=== PATIENT | male | born 1965 | race Caucasian/White ===

== ENCOUNTER → 2020-04-12 15:08 | Outpatient (CLI) | payer OTHER, SELFPAY ==
--- NOTE | ~2020-04-12 | XR_ITS ---
EXAMINATION: XR chest 2V 04/12/2020 16:09 INDICATION: Dyspnea. PROCEDURE: 2 view chest COMPARISON: 06/05/2012 FINDINGS: The lungs are clear. The cardiomediastinal silhouette is within normal limits. There are no pleural effusions. There is no pneumothorax suspected. IMPRESSION: 1: NO ACUTE CARDIOPULMONARY DISEASE. Reviewed, dictated and finalized at location A.
== END ==
PROVIDERS: PCP Family Medicine; Visit Provider Family Medicine
DX: R06.00 Dyspnea, unspecified (principal)
CPT/HCPCS: 71046

== ENCOUNTER 2020-10-05 16:34 | Outpatient (CLI) | payer OTHER, SELFPAY | END 2020-10-05 16:35 | disposition home or self-care (01) | LOC: ANHCOVIDVC 16:34 | PROVIDERS: PCP Family Medicine | DX: Z23 Encounter for immunization (principal) | CPT/HCPCS: 0001A; 91300 ==

== ENCOUNTER 2020-10-26 16:26 | Outpatient (CLI) | payer OTHER, SELFPAY | END 2020-10-26 16:27 | disposition home or self-care (01) | LOC: ANHCOVIDVC 16:26 | PROVIDERS: PCP Family Medicine | DX: Z23 Encounter for immunization (principal) | CPT/HCPCS: 0002A; 91300 ==

== ENCOUNTER → 2021-02-26 16:31 | Outpatient (CLI) | payer OTHER, SELFPAY ==
--- NOTE | ~2021-02-26 | XR_ITS ---
EXAMINATION: XR chest 2V DATE: 02/26/2021 16:48 INDICATION: Cough. TECHNIQUE: Frontal and lateral views of the chest were obtained. COMPARISON: Chest 2 views 05/12/2020, CT abdomen and pelvis 02/09/2015 FINDINGS: The chest demonstrates clear lungs without pneumonia, pleural effusion, or pneumothorax. Th e heart size is normal. IMPRESSION: 1. No acute cardiopulmonary disease. Reviewed, dictated and finalized at location A.
== END ==
PROVIDERS: PCP Family Medicine; Visit Provider Nurse Practitioner Family
DX: R05 Cough (principal)
CPT/HCPCS: 71046

== ENCOUNTER → 2022-12-13 12:41 | Outpatient (CLI) | payer OTHER, SELFPAY ==
--- NOTE | ~2022-12-13 | XR_ITS ---
XR abdomen/kub 1V 12/13/2022 13:44 INDICATION: Microscopic hematuria TECHNIQUE: KUB COMPARISON: None FINDINGS: Bowel gas pattern is normal. There is no evidence of free air, mass, organomegaly, ascites or obstruction. No abnormal calculi are seen. The bones appear intact. IMPRESSION: 1: No acute abdominal abnormality identified. Reviewed, dictated and finalized at location B.
--- NOTE | ~2022-12-13 | CT_ITS ---
CT of the Abdomen and Pelvis: Indication: Microscopic hematuria Technique: 2.5 mm axial scans were obtained through the abdomen and pelvis prior to and following in travenous administration of 130 cc of Omnipaque 350. Dose reduction technique was used on this scan b y utilizing automated exposure control and iterative reconstruction technique. The dose-length produc t (DLP) was 2269.01 mGy-cm. COMPARISON: 02/09/2015 Findings: Scans through the lung bases demonstrate 7 mm right middle lobe pulmonary nodule. The liver, spleen, pancreas, gallbladder, and adrenal glands are within normal limits. 7 mm nonobstru cting right renal stone present. 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 No hydronephr osis or ureteral stone either side. No evidence of aortic aneurysm. No lymphadenopathy. No bowel obstruction or bowel wall thickening. There is no evidence to suggest acute appendicitis. Images through the pelvis were performed. Urinary bladder unremarkable. Prostate gland and seminal ve sicles are unremarkable. Impression: 7 mm nonobstructing right renal stone. Duplicated left renal collecting system, without hydronephrosis. 7 mm right middle lobe pulmonary nodule. According to Fleischner Society criteria, for a low-risk pat ient, follow-up CT scan at 6-12 months recommended, then consider additional 18-[address] For high -risk patients, follow-up CT scans at 6-12 months and 18-24 months are recommended. Reviewed, dictated and finalized at [facility]. Impression: 7 mm nonobstructing right renal stone. Duplicated left renal collecting system, without hydronephrosis. 7 mm right middle lobe pulmonary nodule. According to Fleischner Society criter ia, for a low-risk patient, follow-up CT scan at 6-12 months recommended, then consider additional 18-[address] For high-risk patients, follow-up CT scans at 6-12 months and 18-24 months are recommended.
[2022-12-13 13:23] LABS: Estimated Glomerular Filt Rate > 60
== END ==
PROVIDERS: PCP Family Medicine; Visit Provider Urology
DX: R31.29 Other microscopic hematuria (principal); N20.0 Calculus of kidney
CPT/HCPCS: 74018; 74178; Q9967

== ENCOUNTER → 2023-01-24 10:25 | Outpatient (CLI) | payer OTHER, SELFPAY ==
--- NOTE | ~2023-01-24 | XR_ITS ---
Supine and upright views of the abdomen Clinical history: Kidney stone COMPARISON: 12/13/2022 Findings: Bowel gas pattern is nonspecific. No evidence for obstruction or free air. Possible right l ower pole renal stone present. Osseous structures are intact. Impression: Possible right lower pole renal stone, measuring 7 mm. Reviewed, dictated and finalized at location . Impression: Possible right lower pole renal stone, measuring 7 mm.
== END ==
PROVIDERS: PCP Family Medicine; Visit Provider Urology
DX: N20.0 Calculus of kidney (principal)
CPT/HCPCS: 74018

== ENCOUNTER 2023-07-01 15:43 | Outpatient (CLI) | payer OTHER, SELFPAY ==
--- NOTE | ~2023-07-01 | CT_ITS ---
CT Scan of the Chest without Contrast: Clinical Indication: Lung nodule Technique: Contiguous sections were acquired throughout the chest without intravenous contrast. Dose reduction technique was used on this scan by utilizing automated exposure control and iterative recon struction technique. The dose-length product (DLP) was 429.09 mGy-cm. Findings: There is no evidence of any significant mediastinal, hilar or axillary lymphadenopathy. The mediastin al soft tissues appear normal. There is no evidence of pleural or pericardial effusion. There is a 6 mm fissural nodule in the right lung (axial image 62), stable from 12/13/2022. Calcified right lower lobe granuloma noted. Images through the upper abdomen reveal no abnormalities. Impression: 6 mm fissural nodule right lung is stable since 12/13/2022. Reviewed, dictated and finalized at [facility]. [employer] Impression: 6 mm fissural nodule right lung is stable since 12/13/2022.
== END 2023-07-01 15:44 | disposition home or self-care (01) ==
PROVIDERS: PCP Family Medicine; Visit Provider Physician Assistant
DX: R91.1 Solitary pulmonary nodule (principal)
CPT/HCPCS: 71250

== ENCOUNTER 2023-10-26 01:56 | Emergency (ER) | payer OTHER, SELFPAY ==
--- NOTE | ~2023-10-26 | CT_ITS ---
EXAMINATION: CT cervical spine wo con DATE: 10/26/2023 02:30 INDICATION: Patient fell out of bed. Head and neck injury. TECHNIQUE: Computed tomography (CT) of the cervical spine was performed without intravenous contrast. Automated exposure control and iterative reconstruction technique were employed. Exam dose: 457.89 mGy-cm total exam DLP. COMPARISON: None FINDINGS: There is straightening of cervical spine which may be due to muscle spasm There is moderately severe degenerative disc disease with anterior posterior spurring and bilateral r egional joint spurring, particularly on the right, at C5-6 and C6-7. There is degenerative change at some of the apophyseal joints, most prominent on the left at C2-3 and C3-4. C1 and C2 are normally aligned and the odontoid process is intact. Normal atlantoaxial alignment. No fracture or dislocation, locked facet or prevertebral soft tissue swelling. IMPRESSION: Straightening, which may be due to muscle spasm Cervical spondylosis, particularly C5-6 and C6-7; no fracture or dislocation Reviewed, dictated and finalized at [facility]. Reviewed, dictated and finalized at location A.
--- NOTE | ~2023-10-26 | CT_ITS ---
EXAMINATION: CT brain wo con DATE: 10/26/2023 02:30 INDICATION: Patient fell out of bed. Head injury. TECHNIQUE: Computed tomography (CT) of the head was performed without intravenous contrast. The mA wa s adjusted according to patient size. Iterative reconstruction technique was employed. Exam dose: 75 6.67 mGy-cm total exam DLP. COMPARISON: None FINDINGS: No intracranial mass lesion or hemorrhage or cerebrovascular accident, midline shift or mas s effect. No subdural or epidural hematoma. Opacification of the posterior left ethmoid air cell. The paranasal sinuses and mastoid air cells are otherwise unremarkable. No fracture or bone destruction of the cranial vault. IMPRESSION: No skull fracture or acute intracranial finding Opacified posterior left ethmoid air cell Reviewed, dictated and finalized at [facility]. Reviewed, dictated and finalized at location A.
[2023-10-26 01:58] VITALS: BP 119/66; PULSE 65; RESP 18; TEMP 37; O2SAT 100
--- NOTE | 2023-10-26 02:18 | PC.NURSE ---
Patient taken to CT at this time.
[2023-10-26 04:05] VITALS: BP 119/78; PULSE 66; RESP 17; O2SAT 94
--- NOTE | 2023-10-26 04:44 | ED.GENADULT ---
HPI - General Adult General Chief complaint: Head Injury Stated complaint: glf with head injury Time Seen by Provider: 10/26/23 04:34 History of Present Illness HPI narrative: Patient is a 58-year-old male who presents to the emergency department this evening after falling out of bed and hitting the right back of his head on a dresser. Patient denies any loss of consciousness, states that he remembers the full event and is currently denying any headache, blurry visions, focal weakness, numbness and tingling. Patient does have a 3 cm laceration to the right posterior scalp no active bleeding. Patient was ambulatory after the scene and is currently denying any additional symptoms at this time. Denies any blood thinner use. Related Data Home Medications Medication Instructions Recorded Confirmed ergocalciferol (vitamin D2) 1,250 600 mcg PO WEEKLY 09/23/23 09/23/23 mcg (50,000 unit) capsule Allergies Allergy/AdvReac Type Severity Reaction Status Date / Time No Known Allergies Allergy Verified 10/26/23 02:17 Review of Systems Review of Systems: All systems are reviewed and are negative unless stated otherwise in the HPI. [facility] Past Medical History Medical History Chronic kidney disease, stage 2 (mild) Decreased libido Diarrhea OCAMPO (dyspnea on exertion) Elevated vitamin B12 level Epistaxis Fatigue Hearing loss in right ear Hypertensive chronic kidney disease with stage 1 through stage 4 chronic kidney disease, or unspecified chronic kidney disease Impacted cerumen of right ear Intolerance to BiPAP/CPAP Leg pain, bilateral Obesity Onychomycosis MERYL (obstructive sleep apnea) Scalp tenderness Vision problems Social History Social History Smoking status: Never smoker Second hand tobacco smoke exposure: No Alcohol intake: current Alcohol use details: social drinker Substance use: never Substance use type: does not use Lack of Transportation: No Lack of Food: Never True Current Housing: I Have Housing Concerned About Future Housing: No Difficulty Paying Gas/Electric Bills: No Difficulty Paying for Meds: No Currently Unemployed: No Education: Associate Degree Difficulty w/ Childcare or Family Care: No Living arrangements: with family Occupation/Education: occupation Gender identity (if verbalized by the patient): Male Sexual Orientation (if Verbalized by the Patient): Straight or Heterosexual Exam Narrative: General: Alert, awake, afebrile, in no acute distress. HEENT: PERRL, 3 cm laceration to the right posterior scalp, no active bleeding. Neck: Trachea midline, no JVD, no lymphadenopathy. Cardiovascular: Regular rate and rhythm, no murmurs, rubs or gallops, no peripheral edema. Respiratory: Clear to auscultation bilaterally, no tachypnea, no wheezing, no rhonchi, no rubs, no respiratory distress. Abdomen: Soft, nontender, nondistended, no rebound, no guarding, no peritoneal signs. Musculoskeletal: No joint swelling or deformity, normal muscle tone. Skin: No rashes or petechia, no signs of infection. Psychiatric: Alert and oriented, normal behavior and judgment for situation. Neurological: Alert and oriented to person, place, and time. Follows all commands. No focal deficits, 5/5 motor strength in the bilateral upper and lower extremity, sensation intact in the bilateral lower and upper extremities, cranial nerves 2-12 grossly intact, speech is clear and fluent. Course Vital Signs Vital signs: Vital Signs Temperature 98.6 F 10/26/23 01:58 Pulse Rate 65 10/26/23 01:58 Respiratory Rate 18 10/26/23 01:58 Blood Pressure 119/66 10/26/23 01:58 Pulse Oximetry 100 10/26/23 01:58 Oxygen Delivery Room Air 10/26/23 01:58 Temperature 98.6 F 10/26/23 01:58 Pulse Rate 66 10/26/23 04:05 Respiratory Rate 17 10/26/23 04:05 Blood
== END 2023-10-26 04:56 | disposition home or self-care (01) ==
LOC: ANHED 04:49
PROVIDERS: Emergency Provider Emergency Medicine; PCP Family Medicine
DX: S01.01XA Laceration without foreign body of scalp, initial encounter (principal); I12.9 Hypertensive chronic kidney disease with stage 1 through stage 4 chronic kidney disease, or unspecified chronic kidney disease; N18.2 Chronic kidney disease, stage 2 (mild); E66.9 Obesity, unspecified; Z68.41 Body mass index [BMI] 40.0-44.9, adult; W06.XXXA Fall from bed, initial encounter
CPT/HCPCS: 12001; 70450; 72125; 99284

== ENCOUNTER 2025-02-08 00:05 | Day surgery (SDC) | payer OTHER, SELFPAY ==
[2025-01-25 11:08] VITALS: BMI 38.0
--- OUTSIDE RECORDS SUMMARY | 2025-02-08 00:07 | XMS_ITS | Clinical Summary ---
Author Organization [facility] [address] Address [address] [place] [address] Care Team Providers Care Secondary Special Education Teacher Name Role Phone Nick Griffin MD Primary Care Provider Allergies No known active allergies Medications losartan (COZAAR) 100 mg tablet Take 100 mg by mouth daily 10/29/2021 Active amLODIPine (NORVASC) 10 mg tablet Take 10 mg by mouth daily 11/02/2021 Active escitalopram (LEXAPRO) 10 mg tablet Take 10 mg by mouth daily 10/27/2021 Active omeprazole (PriLOSEC) 40 mg capsule Take 40 mg by mouth daily 10/22/2021 Active valACYclovir (VALTREX) 500 mg tablet Take 500 mg by mouth daily 10/31/2021 Active busPIRone (BUSPAR) 5 mg tablet Take 5 mg by mouth 2 (two) times a day 10/17/2021 Active cholecalciferol (VITAMIN D-3) 5,000 unit capsule Take 5,000 Units by mouth daily Active zinc acetate 25 mg (zinc) capsule Take 25 mg by mouth daily Active doxazosin (CARDURA) 2 mg tablet Take 1 tablet (2 mg total) by mouth nightly 90 tablet 3 11/19/2021 Active Active Problems No known active problems Surgical History Surgery Date Site/Laterality Comments KNEE ARTHROSCOPY 07/21/2011 - 07/20/2012 Right Knee Surgery, Arthroscopic INGUINAL HERNIA REPAIR 07/21/1975 - 07/20/1976 Right Inguinal Hernia Repair LITHOTRIPSY 07/21/1976 - 07/20/1977 KNEE SURGERY 07/21/2016 - 07/20/2017 Left Medical History Medical History Date Comments Sleep apnea Sleep Apnea Calculus of kidney Kidney Stones Hypertension 2012 Hypertension Gastroesophageal reflux disease GERD Family History Medical History Relation Name Comments Diabetes Daughter Cancer Mother Relation Name Status Comments Daughter Mother Social History Tobacco Use Types Packs/Day Years Used Date Smoking Tobacco: Former Smokeless Tobacco: Never Alcohol Use Standard Drinks/Week Comments Yes 0 (1 standard drink = 0.6 oz pur e alcohol) Sex and Gender Information Value Date Recorded Sex Assigned at Not on file 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 Gender Identity Not on file Sexual Orientation Not on file Obstetrics History Last Filed Vital Signs Vital Sign Reading Time Taken Comments Blood Pressure 144/83 11/19/2021 4:05 PM CDT Pulse 61 11/19/2021 4:05 PM CDT Temperature 36.5 C (97.7 F) 11/19/2021 4:05 PM CDT Respiratory Rate - - Oxygen Saturation - - Inhaled Oxygen Concentration - - Weight 124.5 kg (274 lb 6.4 oz) 11/19/2021 4:05 PM CDT Height 172.7 cm (5' 8) 11/19/2021 4:05 PM CDT Body Mass Index 41.72 11/19/2021 4:05 PM CDT Plan of Treatment Not on file Insurance [facility] [place] [address] Care Teams Secondary Special Education Teacher Relationship Specialty Start Date End Date Nick Griffin MD [address] [facility] [address] [place] [address] PCP - General Family Medicine 02/21/20
--- OUTSIDE RECORDS SUMMARY | 2025-02-08 00:07 | XMS_ITS | Referral Summary ---
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
[2025-02-08 06:14] VITALS: BP 118/78; PULSE 75; RESP 18; TEMP 35.9; O2SAT 99
[2025-02-08] MEDS: LACTATED RINGERS 1,000 ML 150 ML IV CONT (06:24)
--- NOTE | 2025-02-08 07:17 | PM.IMHP ---
H&P: HPI History of Present Illness Date/Time: 02/08/25 07:17 Chief Complaint: History of colon polyps Narrative: The patient has a history of colonic polyps, the last colonoscopy was approximately 6 years. recently patient was found to be Cologuard positive. Review of Systems Review of Systems: All systems reviewed & are unremarkable except as noted in HPI and below PMFSH Past Medical History Medical History Obesity Leg pain, bilateral Diarrhea Intolerance to BiPAP/CPAP Hypertensive chronic kidney disease with stage 1 through stage 4 chronic kidney disease, or unspecified chronic kidney disease Chronic kidney disease, stage 2 (mild) MERYL (obstructive sleep apnea) Elevated vitamin B12 level Onychomycosis Epistaxis Hearing loss in right ear Decreased libido Vision problems Scalp tenderness Fatigue Impacted cerumen of right ear OCAMPO (dyspnea on exertion) Social History Social History Smoking status: Never smoker Second hand tobacco smoke exposure: No Alcohol intake: current Alcohol use details: social drinker Substance use: never Substance use type: does not use Do You Feel Safe in your Home?: Yes Lack of Transportation: No Lack of Food: Never True Current Housing: I Have Housing Concerned About Future Housing: No Difficulty Paying Gas/Electric Bills: No Difficulty Paying for Meds: No Currently Unemployed: No Education: Associate Degree Difficulty w/ Childcare or Family Care: No Living arrangements: with family Occupation/Education: occupation Gender identity (if verbalized by the patient): Male Sexual Orientation (if Verbalized by the Patient): Straight or Heterosexual Meds Home Medications and Allergies Home Medications ?Medication ?Instructions ?Recorded ?Confirmed ?Type valacyclovir 500 mg tablet 500 mg PO DAILY PRN cold sores #90 05/06/22 01/25/25 Rx tabs sildenafil 100 mg tablet 100 mg PO DAILY PRN sexual 07/09/23 01/25/25 Rx activity #30 tabs ergocalciferol (vitamin D2) 1,250 600 mcg PO WEEKLY 09/23/23 02/08/25 History mcg (50,000 unit) capsule losartan 50 mg tablet 50 mg PO DAILY #90 tabs 10/04/24 02/08/25 Rx omeprazole 40 mg capsule,delayed See Rx Instructions .Route 11/15/24 02/08/25 Rx release .COMPLEX #90 caps fluticasone propionate 50 2 spray intranasal BID #16 mL 01/19/25 02/08/25 Rx mcg/actuation nasal spray,suspension (Flonase Allergy Relief) amlodipine 5 mg tablet 10 mg PO DAILY 01/25/25 02/08/25 History buspirone 5 mg tablet 5 mg PO DAILY PRN anxiety 01/25/25 01/25/25 History doxycycline hyclate 100 mg tablet 100 mg PO DAILY 01/25/25 02/08/25 History escitalopram oxalate 10 mg tablet 10 mg PO DAILY #90 tabs 01/31/25 02/08/25 Rx (Lexapro) Allergies Allergy/AdvReac Type Severity Reaction Status Date / Time No Known Allergies Allergy Verified 02/08/25 06:12 Vital Signs Vital Signs - 24 hr 02/08/25 06:14 Temperature 96.7 F L Pulse Rate 75 Respiratory Rate 18 Blood Pressure 118/78 Pulse Oximetry 99 Oxygen Delivery Room Air Exam Const: General: cooperative and healthy appearing Resp: Effort & Inspection: normal respiratory effort and able to speak in complete sentences Auscultation: clear to auscultation bilaterally Cardio: Rate: regular rate Rhythm: regular rhythm GI: Inspection: normal to inspection GI Palp: No No hepatosplenomegaly present Auscultation: normal bowel sounds Rectal Exam: deferred Skin: General skin exam: normal color Psych: Appearance: grossly normal Mental Status: mental status grossly normal Assessment and Plan Assessment and plan (1) History of colonic polyps: Code(s): Z86.0100 - Personal history of colon polyps, unspecified Status: Acute Assessment and Plan: The patient is deemed a good candidate for the procedure. Consent signed. Will proceed. (2) Positive colorectal cancer screening using Cologuard test: Code(s): R19.5 - Other fecal abnormalities Status: Acute
--- NOTE | 2025-02-08 07:23 | P.PNAN_ITS ---
Anes - Initial Pre Proc Eval Procedure: Operation Date: 02/08/25 07:30 Proposed Procedures p Screening Colonoscopy - Tan Vasquez MD Date/Time: 02/08/25 07:23 Surgeon: Tan Vasquez MD Pre Op Diagnosis: neoplasm screening Patient Data Age: 59 Gender: M Height: 1.73 m Weight: 108.9 kg Last Vital Signs Temp 96.7 F L 02/08/25 06:14 Pulse 75 02/08/25 06:14 Resp 18 02/08/25 06:14 BP 118/78 02/08/25 06:14 Pulse Ox 99 02/08/25 06:14 O2 Del Method Room Air 02/08/25 06:14 Allergies Allergy/AdvReac Type Severity Reaction Status Date / Time No Known Allergies Allergy Verified 02/08/25 06:12 Home Medications ?Medication ?Instructions ?Recorded ?Confirmed ?Type valacyclovir 500 mg tablet 500 mg PO DAILY PRN cold sores #90 05/06/22 01/25/25 Rx tabs sildenafil 100 mg tablet 100 mg PO DAILY PRN sexual 07/09/23 01/25/25 Rx activity #30 tabs ergocalciferol (vitamin D2) 1,250 600 mcg PO WEEKLY 09/23/23 02/08/25 History mcg (50,000 unit) capsule losartan 50 mg tablet 50 mg PO DAILY #90 tabs 10/04/24 02/08/25 Rx omeprazole 40 mg capsule,delayed See Rx Instructions .Route 11/15/24 02/08/25 Rx release .COMPLEX #90 caps fluticasone propionate 50 2 spray intranasal BID #16 mL 01/19/25 02/08/25 Rx mcg/actuation nasal spray,suspension (Flonase Allergy Relief) amlodipine 5 mg tablet 10 mg PO DAILY 01/25/25 02/08/25 History buspirone 5 mg tablet 5 mg PO DAILY PRN anxiety 01/25/25 01/25/25 History doxycycline hyclate 100 mg tablet 100 mg PO DAILY 01/25/25 02/08/25 History escitalopram oxalate 10 mg tablet 10 mg PO DAILY #90 tabs 01/31/25 02/08/25 Rx (Lexapro) Patient hx anesthesia problems: none Family hx anesthesia problems: none Results Review: All pre-operative results and documents have been reviewed as part of the pre- operative evaluation. PMFSH Past Medical History Medical History Obesity Leg pain, bilateral Diarrhea Intolerance to BiPAP/CPAP Hypertensive chronic kidney disease with stage 1 through stage 4 chronic kidney disease, or unspecified chronic kidney disease Chronic kidney disease, stage 2 (mild) MERYL (obstructive sleep apnea) Elevated vitamin B12 level Onychomycosis Epistaxis Hearing loss in right ear Decreased libido Vision problems Scalp tenderness Fatigue Impacted cerumen of right ear OCAMPO (dyspnea on exertion) Social History Social History Smoking status: Never smoker Second hand tobacco smoke exposure: No Alcohol intake: current Alcohol use details: social drinker Substance use: never Substance use type: does not use Do You Feel Safe in your Home?: Yes Lack of Transportation: No Lack of Food: Never True Current Housing: I Have Housing Concerned About Future Housing: No Difficulty Paying Gas/Electric Bills: No Difficulty Paying for Meds: No Currently Unemployed: No Education: Associate Degree Difficulty w/ Childcare or Family Care: No Living arrangements: with family Occupation/Education: occupation Gender identity (if verbalized by the patient): Male Sexual Orientation (if Verbalized by the Patient): Straight or Heterosexual Anes - Eval Final PreProcedure Day of Procedure 02/08/25 07:23 Patient weight: obese Lungs: normal air movement Airway: Mallampati scale class II Neurological: alert and oriented Last oral intake: >/= 8 hours ASA classification: III Emergent: no Anesthetic plan: proceed Anesthesia type and monitoring: general GIVS and standard monitoring Results Review: All pre-operative results and documents have been reviewed as part of the pre- operative evaluation. HTN, MERYL noncompliant w CPAP. Informed Consent: The patient's anesthetic plan and its attendant risks and benefits were discussed with the patient/family/POA. Questions were solicited and answers provided to the satisfaction of the patient/family/POA.
--- NOTE | 2025-02-08 07:50 | S_PTH ---
PATIENT: Jarocho Nicholson LOC: [facility] #:[id number] AGE/SX: 59/M ROOM: RE02/08/[address]: Tan Vasquez MD : 1965 BED: DIS: 02/08/2025 SPEC #: [id number] RECD: 02/08/25 09:09 STATUS: LATHA RE #: [id number] TRISTAN: 02/08/25 07:[address]: Tan Vasquez DEPT: [facility] Surgical RECD BY: Dionna Santa ENTERED: 02/08/25 09:10 SP TYPE: Surgical OTHR DR: Nick Griffin MD Tissues: A - Colon Polypectomy Procedures: Hematoxylin and Eosin Stain Gross and Microscopic Level 4
[2025-02-08 07:51] VITALS: BP 125/70; PULSE 67; RESP 15; O2SAT 100
[2025-02-08 08:01] VITALS: BP 119/75; PULSE 64; RESP 16; O2SAT 99
[2025-02-08 08:11] VITALS: BP 132/78; PULSE 60; RESP 16; O2SAT 100
== END 2025-02-08 08:19 | disposition home or self-care (01) ==
PROVIDERS: PCP Family Medicine; Referring Provider Physician Assistant Medical; Visit Provider Internal Medicine Gastroenterology
PROC: 0DJD8ZZ Inspection of Lower Intestinal Tract, Via Natural or Artificial Opening Endoscopic (ICD-10-PCS; CPT 45378; principal; 2025-02-08 07:30)
DX: R19.5 Other fecal abnormalities (principal); K63.5 Polyp of colon; K57.30 Diverticulosis of large intestine without perforation or abscess without bleeding; K64.8 Other hemorrhoids; E66.9 Obesity, unspecified; Z68.36 Body mass index [BMI] 36.0-36.9, adult
CPT/HCPCS: 45385; 88305; J2003; J2704; J7120